=== PATIENT | male | born 1970 | race Caucasian/White ===

== ENCOUNTER 2022-08-18 12:03 | Inpatient (IN) ==
[2022-08-18] MEDS ORDERED: SODIUM CHLORIDE 0.9% 1,000 ML IV STA (13:13)
[2022-08-18 13:36] LABS: Basophils # 0.1 10*3/uL (0.0-0.2); Basophils % 1.2 % (0.0-0.8); Eosinophils % 0.6 % (0.00-10.9); Hematocrit 38.3 VOL% (42.0-52.0); Hemoglobin 13.2 GM/DL (14.0-18.0); Immature Granulocytes % 0.2 %; Immature Granulocytes Absolute 0.01 #; Lymphocytes # 1.5 10*3/uL (1.4-4.0); Mean Corpuscular HGB Conc 34.5 GM/DL (32-36); Mean Corpuscular Volume 93.9 FL (87-102); Mean Platelet Volume 11.1 FL (9.6-12.0); Monocytes # 0.5 10*3/uL (0.11-0.8); Monocytes % 10.3 % (1.7-12.7); Neutrophils % 57.7 % (38.7-73.9); Platelet Count 64 T/CUMM (130-400); Red Blood Count 4.08 MC/CUMM (3.8-5.5); Red Cell Distribution Width 15.4 % (9.3-17.3)
[2022-08-18 13:44] LABS: INR 1.6; PT Patient Result 16.8 SECS (10.1-12.1); Partial Thromboplastin Time 32.7 SECS (23.7-32.9)
[2022-08-18 13:55] LABS: Albumin 2.6 G/DL (3.4-5.0); Calcium 8.7 MG/DL (8.5-10.1); Osmolality,Calculated 277.5 MOS/KG (273-304); Potassium 3.8 MMOL/L (3.5-5.1); Total Protein 7.2 G/DL (6.4-8.2)
[2022-08-18 14:21] LABS: Barbiturates Screen,Urine Negative (Negative); Benzodiazepines Screen,Urine Negative (Negative); Cannabinoid Screen,Urine Negative (Negative); Opiate Screen,Urine Negative (Negative); Phencyclidine Screen,Urine Negative (Negative)
[2022-08-18 14:22] LABS: Bacteria,Urine Occasional /HPF (Few); Glucose,Urine (UA) 100 mg/dL (Negative); Hyaline Casts,Urine 1 /LPF (0-3); Ketones,Urine 15 mg/dL (Negative); Mucus,Urine Occasional /LPF (Occasional); Nitrite,Urine Negative (Negative); Protein,Urine Negative (Negative); RBC,Urine 2 /HPF (0-4); Squamous Epithelial Cell,Urine Occasional /HPF (0-10); Urine Appearance Clear (Clear); Urine Color Dark Yellow (Yellow)
[2022-08-18 14:23] LABS: Bilirubin,Urine Moderate mg/dL (Negative); Blood, Urine Negative (Negative); Urine Urobilinogen >= 8.0 eU/dL (<2.0)
[2022-08-18 14:52] LABS: Platelet Estimate Decreased
[2022-08-18] MEDS ORDERED: THIAMINE 200 MG/2 ML VIAL IV STA (15:20)
[2022-08-18] MEDS ORDERED: LACTULOSE 20 GM/30 ML UDCUP PO STA (15:23)
[2022-08-18] MEDS: DEXTROSE 5% NACL 0.45% 1,000 ML IV SCH (16:04)
[2022-08-18] MEDS: ONDANSETRON 4 MG/2 ML VIAL IV PRN (16:05)
[2022-08-18] MEDS ORDERED: MORPHINE 2 MG/1 ML SYRINGE IV PRN (16:42)
[2022-08-18] MEDS ORDERED: hydrALAZINE 20 MG/1 ML VIAL IV PRN (16:44)
[2022-08-18] MEDS: PANTOPRAZOLE 40 MG TABLET PO SCH (20:42)
[2022-08-18] MEDS: LACTULOSE 20 GM/30 ML UDCUP PO SCH (20:42)
[2022-08-19] MEDS: DEXTROSE 5% NACL 0.45% 1,000 ML IV SCH ×3 (04:31→17:26)
[2022-08-19] MEDS: LORazepam 2 MG/1 ML VIAL IV PRN ×3 (04:47→16:57)
[2022-08-19 05:51] LABS: Basophils # 0.1 10*3/uL (0.0-0.2); Basophils % 1.5 % (0.0-0.8); Eosinophils # 0.1 10*3/uL (0.0-0.87); Eosinophils % 1.5 % (0.00-10.9); Hematocrit 31.6 VOL% (42.0-52.0); Hemoglobin 10.8 GM/DL (14.0-18.0); Immature Granulocytes % 0.3 %; Immature Granulocytes Absolute 0.01 #; Lymphocytes # 0.7 10*3/uL (1.4-4.0); Lymphocytes % 21.9 % (21.2-54.2); Mean Corpuscular HGB Conc 34.2 GM/DL (32-36); Mean Corpuscular Volume 93.2 FL (87-102); Mean Platelet Volume 11.9 FL (9.6-12.0); Monocytes # 0.5 10*3/uL (0.11-0.8); Monocytes % 15.7 % (1.7-12.7); Neutrophils % 59.1 % (38.7-73.9); Red Blood Count 3.39 MC/CUMM (3.8-5.5); Red Cell Distribution Width 15.2 % (9.3-17.3); White Blood Count 3.4 T/CUMM (4-12)
[2022-08-19 05:54] LABS: Platelet Count 37 T/CUMM (130-400)
[2022-08-19 06:01] LABS: INR 1.7; PT Patient Result 18.4 SECS (10.1-12.1)
[2022-08-19 06:06] LABS: % Iron Saturation 84.5 % (18-50)
[2022-08-19 06:14] LABS: Eosinophils 2 % (0-10); Lymphocytes 19 % (20-55); Platelet Estimate Decreased; Total Cells Counted 100
[2022-08-19 06:17] LABS: Albumin 2.2 G/DL (3.4-5.0); Bilirubin,Total 3.9 MG/DL (0.20-1.00); Calcium 8.1 MG/DL (8.5-10.1); Osmolality,Calculated 278.3 MOS/KG (273-304); Potassium 3.3 MMOL/L (3.5-5.1)
[2022-08-19 06:25] LABS: Folate 6.87 NG/ML (5.38-24.0)
[2022-08-19 06:44] LABS: Risk Ratio 5.23; Thyroid Stimulating Hormone 1.57 uIU/ml (0.358-3.74)
[2022-08-19 06:45] LABS: Hepatitis B Core IgM Quant < 0.05 Index; Hepatitis B Surface Ag Quant < 0.10 Index; Hepatitis B Surface Ag Result Non-Reactive (NonReactive); Hepatitis C Virus Ab Quant 0.18 Index; Hepatitis C Virus Ab Result Non-Reactive (NonReactive)
[2022-08-19] MEDS: PANTOPRAZOLE 40 MG TABLET PO SCH (08:22)
[2022-08-19] MEDS: FOLIC ACID 1 MG TABLET PO SCH (08:22)
[2022-08-19] MEDS: MULTIVITAMIN (CENTRUM) TABLET PO SCH (08:22)
[2022-08-19] MEDS: LACTULOSE 20 GM/30 ML UDCUP PO SCH ×3 (08:22→20:37)
[2022-08-19] MEDS: THIAMINE 200 MG/2 ML VIAL IV SCH (08:23)
[2022-08-19] MEDS: ONDANSETRON 4 MG/2 ML VIAL IV PRN ×2 (11:35→16:57)
[2022-08-19] MEDS ORDERED: POTASSIUM CHLORIDE 20 MEQ TABLET PO ONE (16:27)
[2022-08-19] MEDS ORDERED: MAGNESIUM SULF RIDER 2 GM/50 ML PREMIX IV ONE (17:02)
[2022-08-19] MEDS: SUCRALFATE 1 GM TABLET PO SCH (17:34)
[2022-08-19] MEDS: GABAPENTIN 300 MG CAPSULE PO SCH (20:37)
[2022-08-19] MEDS: OXAZEPAM 10 MG CAPSULE PO SCH (20:37)
[2022-08-19] MEDS ORDERED: RIFAXIMIN 550 MG TABLET PO SCH (21:00)
[2022-08-19] MEDS ORDERED: SUCRALFATE 1 GM TABLET PO SCH (21:00)
[2022-08-19] MEDS ORDERED: PANTOPRAZOLE 40 MG VIAL IV SCH (21:00)
[2022-08-20] MEDS: SUCRALFATE 1 GM TABLET PO SCH ×4 (00:41→18:14)
[2022-08-20] MEDS: ONDANSETRON 4 MG/2 ML VIAL IV PRN (01:06)
[2022-08-20] MEDS: LORazepam 2 MG/1 ML VIAL IV PRN ×4 (01:06→22:10)
[2022-08-20] MEDS: LACTULOSE 20 GM/30 ML UDCUP PO SCH ×4 (02:39→22:10)
[2022-08-20 05:58] LABS: Basophils % 0.5 % (0.0-0.8); Eosinophils # 0.2 10*3/uL (0.0-0.87); Eosinophils % 3.9 % (0.00-10.9); Hematocrit 29.9 VOL% (42.0-52.0); Hemoglobin 10.6 GM/DL (14.0-18.0); Immature Granulocytes % 0.3 %; Immature Granulocytes Absolute 0.01 #; Lymphocytes % 24.5 % (21.2-54.2); Mean Corpuscular HGB Conc 35.5 GM/DL (32-36); Mean Corpuscular Volume 91.7 FL (87-102); Mean Platelet Volume 11.9 FL (9.6-12.0); Monocytes # 0.5 10*3/uL (0.11-0.8); Monocytes % 12.1 % (1.7-12.7); Neutrophils % 58.7 % (38.7-73.9); Red Blood Count 3.26 MC/CUMM (3.8-5.5); Red Cell Distribution Width 14.7 % (9.3-17.3); White Blood Count 3.9 T/CUMM (4-12)
[2022-08-20 06:00] LABS: Platelet Count 33 T/CUMM (130-400)
[2022-08-20 06:04] LABS: INR 1.9; PT Patient Result 20.3 SECS (10.1-12.1)
[2022-08-20 06:17] LABS: Hypochromia Slight; Microcytosis Slight; Platelet Estimate Decreased
[2022-08-20 06:43] LABS: Albumin 2.1 G/DL (3.4-5.0); Bilirubin,Total 5.8 MG/DL (0.20-1.00); Calcium 8.3 MG/DL (8.5-10.1); Osmolality,Calculated 271.7 MOS/KG (273-304); Potassium 3.4 MMOL/L (3.5-5.1)
[2022-08-20] MEDS ORDERED: LACTATED RINGERS 1,000 ML IV SCH (08:00)
[2022-08-20] MEDS ORDERED: propofoL 200 MG/20 ML VIAL IV ONE (09:07)
[2022-08-20] MEDS ORDERED: LIDOCAINE 2% 5 ML VIAL ONE (09:07)
[2022-08-20] MEDS: DEXTROSE 5% NACL 0.45% 1,000 ML IV SCH (09:26)
[2022-08-20] MEDS: OXAZEPAM 10 MG CAPSULE PO SCH ×3 (10:45→22:09)
[2022-08-20] MEDS: FOLIC ACID 1 MG TABLET PO SCH (10:45)
[2022-08-20] MEDS: MULTIVITAMIN (CENTRUM) TABLET PO SCH (10:45)
[2022-08-20] MEDS: CHOLECALCIFEROL 5,000 UNIT TABLET PO SCH (10:45)
[2022-08-20] MEDS: THIAMINE 200 MG/2 ML VIAL IV SCH (10:45)
[2022-08-20] MEDS ORDERED: MAGNESIUM SULF RIDER 2 GM/50 ML PREMIX IV PRN (12:35)
[2022-08-20] MEDS ORDERED: MAGNESIUM SULF RIDER 4 GM/100 ML PREMIX IV PRN (12:35)
[2022-08-20] MEDS ORDERED: traMADol 50 MG TABLET PO PRN (13:00)
[2022-08-20] MEDS: HALOPERIDOL 5 MG/ML AMP IM PRN (16:00)
[2022-08-20] MEDS: FAMOTIDINE 20 MG/2 ML VIAL IV SCH (22:09)
[2022-08-20] MEDS: GABAPENTIN 300 MG CAPSULE PO SCH (22:09)
[2022-08-21] MEDS: SUCRALFATE 1 GM TABLET PO SCH ×6 (00:10→22:48)
[2022-08-21] MEDS: LACTULOSE 20 GM/30 ML UDCUP PO SCH ×4 (03:17→22:46)
[2022-08-21] MEDS: LORazepam 2 MG/1 ML VIAL IV PRN ×2 (04:56→16:56)
[2022-08-21 05:50] LABS: Basophils % 0.6 % (0.0-0.8); Eosinophils # 0.2 10*3/uL (0.0-0.87); Eosinophils % 4.9 % (0.00-10.9); Hematocrit 31.7 VOL% (42.0-52.0); Lymphocytes % 30.4 % (21.2-54.2); Mean Corpuscular HGB Conc 34.7 GM/DL (32-36); Mean Corpuscular Volume 92.7 FL (87-102); Mean Platelet Volume 12.2 FL (9.6-12.0); Monocytes # 0.3 10*3/uL (0.11-0.8); Monocytes % 10.1 % (1.7-12.7); Red Blood Count 3.42 MC/CUMM (3.8-5.5); White Blood Count 3.3 T/CUMM (4-12)
[2022-08-21 05:52] LABS: Platelet Count 29 T/CUMM (130-400)
[2022-08-21 06:08] LABS: INR 2.1; PT Patient Result 22.3 SECS (10.1-12.1); Partial Thromboplastin Time 32.8 SECS (23.7-32.9)
[2022-08-21 06:10] LABS: Albumin 2.2 G/DL (3.4-5.0); Bilirubin,Total 7.2 MG/DL (0.20-1.00); Calcium 8.4 MG/DL (8.5-10.1); Osmolality,Calculated 275.4 MOS/KG (273-304); Phosphorous 2.8 MG/DL (2.5-4.9); Potassium 3.5 MMOL/L (3.5-5.1); Total Protein 5.9 G/DL (6.4-8.2)
[2022-08-21 06:17] LABS: Platelet Estimate Decreased
[2022-08-21] MEDS: FAMOTIDINE 20 MG/2 ML VIAL IV SCH (09:50)
[2022-08-21] MEDS: THIAMINE 200 MG/2 ML VIAL IV SCH (09:50)
[2022-08-21] MEDS: CHOLECALCIFEROL 5,000 UNIT TABLET PO SCH (09:58)
[2022-08-21] MEDS: FOLIC ACID 1 MG TABLET PO SCH (09:58)
[2022-08-21] MEDS: MULTIVITAMIN (CENTRUM) TABLET PO SCH (09:58)
[2022-08-21] MEDS: chlordiazePOXIDE 25 MG CAPSULE PO SCH ×3 (10:02→22:46)
[2022-08-21] MEDS: RIFAXIMIN 550 MG TABLET PO SCH ×2 (10:03→22:46)
[2022-08-21] MEDS: DEXT 5% NACL 0.45% KCL 20 MEQ 20 MEQ/1,000 ML BAG IV SCH ×2 (12:17→22:49)
[2022-08-21] MEDS: HALOPERIDOL 5 MG/ML AMP IM PRN (16:55)
[2022-08-21] MEDS ORDERED: SERTRALINE 25 MG TABLET PO SCH (21:00)
[2022-08-21] MEDS: GABAPENTIN 300 MG CAPSULE PO SCH (22:46)
[2022-08-21] MEDS: FAMOTIDINE 20 MG TABLET PO SCH (22:46)
[2022-08-22] MEDS: LORazepam 2 MG/1 ML VIAL IV PRN (01:10)
[2022-08-22] MEDS: LACTULOSE 20 GM/30 ML UDCUP PO SCH ×2 (03:45→08:40)
[2022-08-22] MEDS: SUCRALFATE 1 GM TABLET PO SCH ×3 (03:46→11:21)
[2022-08-22] MEDS: chlordiazePOXIDE 25 MG CAPSULE PO SCH ×2 (03:46→08:41)
[2022-08-22 05:53] LABS: Basophils % 0.5 % (0.0-0.8); Eosinophils # 0.1 10*3/uL (0.0-0.87); Eosinophils % 3.8 % (0.00-10.9); Hematocrit 31.1 VOL% (42.0-52.0); Hemoglobin 10.8 GM/DL (14.0-18.0); Mean Corpuscular HGB Conc 34.7 GM/DL (32-36); Mean Corpuscular Volume 93.4 FL (87-102); Mean Platelet Volume 10.5 FL (9.6-12.0); Monocytes # 0.4 10*3/uL (0.11-0.8); Monocytes % 11.6 % (1.7-12.7); Neutrophils % 56.1 % (38.7-73.9); Red Blood Count 3.33 MC/CUMM (3.8-5.5); Red Cell Distribution Width 15.1 % (9.3-17.3); White Blood Count 3.7 T/CUMM (4-12)
[2022-08-22 05:54] LABS: Platelet Count 33 T/CUMM (130-400)
[2022-08-22 05:59] LABS: INR 2.3; PT Patient Result 23.8 SECS (10.1-12.1)
[2022-08-22 06:08] LABS: Albumin 2.2 G/DL (3.4-5.0); Bilirubin,Total 6.4 MG/DL (0.20-1.00); Calcium 8.4 MG/DL (8.5-10.1); Osmolality,Calculated 276.4 MOS/KG (273-304); Potassium 3.4 MMOL/L (3.5-5.1); Total Protein 5.8 G/DL (6.4-8.2)
[2022-08-22 06:20] LABS: Platelet Estimate Decreased
[2022-08-22] MEDS: MULTIVITAMIN (CENTRUM) TABLET PO SCH (08:41)
[2022-08-22] MEDS: FAMOTIDINE 20 MG TABLET PO SCH (08:41)
[2022-08-22] MEDS: CHOLECALCIFEROL 5,000 UNIT TABLET PO SCH (08:42)
[2022-08-22] MEDS: RIFAXIMIN 550 MG TABLET PO SCH (08:42)
[2022-08-22] MEDS: FOLIC ACID 1 MG TABLET PO SCH (08:42)
[2022-08-22] MEDS ORDERED: THIAMINE 100 MG TABLET PO SCH (09:00)
[2022-08-22] MEDS: POTASSIUM CHLORIDE 20 MEQ TABLET PO PRN ×2 (11:18→13:24)
[2022-08-22 11:36] VITALS: BP 152/85
[2022-08-22] MEDS: DEXT 5% NACL 0.45% KCL 20 MEQ 20 MEQ/1,000 ML BAG IV SCH (13:47)
[2022-08-22] MEDS ORDERED: POTASSIUM CHLORIDE 20 MEQ TABLET PO ONE (14:00)
[2022-08-22] MEDS ORDERED: PANTOPRAZOLE 40 MG VIAL IV SCH (21:00)
== END 2022-08-22 13:58 | disposition home or self-care (01) | DRG 441 ==
LOC: N.ED 12:03 → N.EDINP 12:03 → N.5E 15:50
PROVIDERS: ADMIT Internal Medicine; ATTEND Internal Medicine